=== PATIENT | female | born 1940 ===

== ENCOUNTER 2020-11-13 02:25 | Inpatient (IN) | payer OTHER, SELFPAY ==
[2020-11-13 05:29] VITALS: BMI 27.6
[2020-11-13] MEDS ORDERED: Acetaminophen 325 MG TAB PO PRN (06:09)
[2020-11-13] MEDS: Sodium Chloride 0.9% 1,000 ML IV SCH ×2 (06:32→21:55)
[2020-11-13 06:44] LABS: #Eosinphils 0.1 thou/uL (0.0-0.7); #Lymphocytes 2.7 thou/uL (1.20-3.40); #Monocytes 0.7 thou/uL (0.11-0.59); #Neutrophils 8.1 thou/uL (1.40-6.50); %Basophils 0.1 % (0.0-1.0); %Eosinophils 0.5 % (0.0-10.0); %Lymphocytes 23.2 % (21.0-51.0); %Monocytes 5.7 % (0.0-10.0); %Neutrophils 70.4 % (42.0-75.0); Hemoglobin 13.5 g/dL (12.0-16.0); Mean Corpuscular HGB CONC 35.1 g/dL (32.0-36.0); Mean Corpuscular Hemoglobin 33.3 pg (27.0-31.0); Mean Corpuscular Volume 94.8 fL (78.0-98.0); Platelet Count 190 thou/uL (130-400); RBC Distribution Width 11.3 % (11.5-14.5); Red Blood Cell (RBC) Count 4.05 mill/uL (4.20-5.40); White Blood Cell (WBC) Count 11.5 thou/uL (4.8-10.8)
[2020-11-13 07:08] LABS: ALT (SGPT) 16 U/L (8-55); AST (SGOT) 24 U/L (5-34); Albumin 3.5 g/dL (3.4-4.8); Alkaline Phosphatase 79 U/L (40-110); Anion Gap 14 mmol/L (10-20); BUN (Urea Nitrogen) 8 mg/dL (9.8-20.1); Calc. Creatinine Clearance 62 mL/min (70-130); Carbon Dioxide 22 mmol/L (23-31); Chloride 101 mmol/L (98-107); Globulin 2.8 g/dL (2.4-3.5); Glucose 160 mg/dL (83-110); Potassium 3.8 mmol/L (3.5-5.1); Protein, Total 6.3 g/dL (5.8-8.1); Sodium 133 mmol/L (136-145)
[2020-11-13] MEDS ORDERED: Sodium Chloride 0.9% 500 ML IV SCH (08:00)
[2020-11-13] MEDS ORDERED: ROCKLATAN EA EYE SCH (08:15)
[2020-11-13] MEDS: Pantoprazole 40 MG VIAL IVP SCH (10:38)
[2020-11-13] MEDS: Fentanyl 100 MCG/2 ML VIAL SLOW IVP PRN ×2 (14:25→22:55)
[2020-11-13] MEDS: Ondansetron PF 4 MG/2 ML Vial IVP PRN (14:27)
[2020-11-13] MEDS: Timolol 0.5% Ophth Soln 5 ml Bottle EA EYE SCH (21:54)
[2020-11-13] MEDS: Brimonidine Tartrate 0.2% Ophth Soln 5 ml Bottle EA EYE SCH (21:55)
[2020-11-14 06:15] LABS: #Eosinphils 0.1 thou/uL (0.0-0.7); #Lymphocytes 3.2 thou/uL (1.20-3.40); #Monocytes 0.6 thou/uL (0.11-0.59); #Neutrophils 2.6 thou/uL (1.40-6.50); %Basophils 0.4 % (0.0-1.0); %Eosinophils 1.9 % (0.0-10.0); %Monocytes 8.8 % (0.0-10.0); %Neutrophils 39.9 % (42.0-75.0); Hemoglobin 12.1 g/dL (12.0-16.0); Mean Corpuscular HGB CONC 33.2 g/dL (32.0-36.0); Mean Corpuscular Hemoglobin 31.9 pg (27.0-31.0); Mean Platelet Volume 8.1 fL (7.4-10.4); Platelet Count 170 thou/uL (130-400); RBC Distribution Width 11.5 % (11.5-14.5); White Blood Cell (WBC) Count 6.5 thou/uL (4.8-10.8)
[2020-11-14 06:43] LABS: Anion Gap 9 mmol/L (10-20); BUN (Urea Nitrogen) 6 mg/dL (9.8-20.1); Calc. Creatinine Clearance 70 mL/min (70-130); Calcium 8.5 mg/dL (7.8-10.44); Carbon Dioxide 24 mmol/L (23-31); Chloride 107 mmol/L (98-107); Glucose 92 mg/dL (83-110); Potassium 3.8 mmol/L (3.5-5.1); Sodium 136 mmol/L (136-145)
[2020-11-14] MEDS: Fentanyl 100 MCG/2 ML VIAL SLOW IVP PRN ×3 (09:24→23:01)
[2020-11-14] MEDS: Pantoprazole 40 MG VIAL IVP SCH (09:25)
[2020-11-14] MEDS: Sodium Chloride 0.9% 1,000 ML IV SCH (10:37)
[2020-11-14] MEDS ORDERED: Bupivacaine PF 0.5% 30 ML VIAL ONE (11:33)
[2020-11-14] MEDS ORDERED: Lidocaine 1% w/Epinephrine 1:100K 20 ML VIAL ONE (11:33)
[2020-11-14] MEDS ORDERED: cefOXitin Sodium/Dextrose 2 GM/50 ML BAG ONE (11:58)
[2020-11-14] MEDS ORDERED: Fentanyl 100 MCG/2 ML VIAL ONE (12:00)
[2020-11-14] MEDS ORDERED: PHENYLEPHRINE-NS 100 MCG/ML 10 ML SYRINGE ONE (12:15)
[2020-11-14] MEDS ORDERED: Dexamethasone 20 MG/5 ML VIAL ONE (12:15)
[2020-11-14] MEDS ORDERED: PROPOFOL 200 MG/20 ML VIAL ONE (12:15)
[2020-11-14] MEDS ORDERED: ePHEDrine 50 MG/ML VIAL ONE (12:15)
[2020-11-14] MEDS ORDERED: Glycopyrrolate 0.2 MG/ML 5 ML SYRINGE ONE (12:15)
[2020-11-14] MEDS ORDERED: Rocuronium Bromide 10 MG/ML (10ML VIAL) ONE (12:15)
[2020-11-14] MEDS ORDERED: Succinylcholine 200 MG/10 ml SYRINGE FS ONE (12:15)
[2020-11-14] MEDS ORDERED: Lidocaine 1% PF 5 ML VIAL ONE (12:15)
[2020-11-14] MEDS ORDERED: Promethazine HCl 25 MG/ML VIAL IM PRN (15:56)
[2020-11-14] MEDS ORDERED: Promethazine HCl 25 MG/ML VIAL IVPB PRN (15:56)
[2020-11-14] MEDS ORDERED: Ondansetron HCl/PF 4 MG/2 ML Vial IVP PRN (15:56)
[2020-11-14] MEDS ORDERED: traMADol HCl 50 MG TAB PO PRN (16:29)
[2020-11-14] MEDS: cefOXitin Sodium/Dextrose,Iso 2 GM in Premix Bag 1 BAG IVPB SCH (20:21)
[2020-11-14] MEDS: Brimonidine Tartrate 0.2% Ophth Soln 5 ml Bottle EA EYE SCH (20:21)
[2020-11-14] MEDS: Timolol 0.5% Ophth Soln 5 ml Bottle EA EYE SCH (20:22)
[2020-11-14] MEDS: traMADol HCl 50 MG TAB PO PRN (20:32)
[2020-11-15] MEDS: Sodium Chloride 0.9% 1,000 ML IV SCH ×2 (01:27→14:22)
[2020-11-15] MEDS: Fentanyl 100 MCG/2 ML VIAL SLOW IVP PRN (01:58)
[2020-11-15] MEDS: cefOXitin Sodium/Dextrose,Iso 2 GM in Premix Bag 1 BAG IVPB SCH ×2 (04:17→11:43)
[2020-11-15] MEDS: traMADol HCl 50 MG TAB PO PRN ×2 (04:18→17:46)
[2020-11-15 06:46] LABS: #Lymphocytes 1.6 thou/uL (1.20-3.40); #Monocytes 0.7 thou/uL (0.11-0.59); #Neutrophils 7.6 thou/uL (1.40-6.50); %Basophils 0.4 % (0.0-1.0); %Eosinophils 0.5 % (0.0-10.0); %Lymphocytes 15.6 % (21.0-51.0); %Monocytes 7.1 % (0.0-10.0); %Neutrophils 76.4 % (42.0-75.0); Hemoglobin 11.3 g/dL (12.0-16.0); Mean Corpuscular HGB CONC 34.7 g/dL (32.0-36.0); Mean Corpuscular Volume 95.1 fL (78.0-98.0); Mean Platelet Volume 8.4 fL (7.4-10.4); Platelet Count 166 thou/uL (130-400); RBC Distribution Width 11.4 % (11.5-14.5); Red Blood Cell (RBC) Count 3.42 mill/uL (4.20-5.40); White Blood Cell (WBC) Count 9.9 thou/uL (4.8-10.8)
[2020-11-15 07:08] LABS: Anion Gap 13 mmol/L (10-20); BUN (Urea Nitrogen) 7 mg/dL (9.8-20.1); Calc. Creatinine Clearance 59 mL/min (70-130); Calcium 7.9 mg/dL (7.8-10.44); Carbon Dioxide 24 mmol/L (23-31); Chloride 105 mmol/L (98-107); Glucose 121 mg/dL (83-110); Potassium 3.8 mmol/L (3.5-5.1); Sodium 138 mmol/L (136-145)
[2020-11-15] MEDS: Pantoprazole 40 MG VIAL IVP SCH (08:52)
[2020-11-15] MEDS: Lidocaine 5% Patch TD SCH (14:22)
[2020-11-15] MEDS: Brimonidine Tartrate 0.2% Ophth Soln 5 ml Bottle EA EYE SCH (20:45)
[2020-11-15] MEDS: Timolol 0.5% Ophth Soln 5 ml Bottle EA EYE SCH (20:46)
[2020-11-16] MEDS: traMADol HCl 50 MG TAB PO PRN (00:01)
[2020-11-16] MEDS: Transdermal Patch Removal TOP SCH (00:03)
[2020-11-16 07:20] LABS: #Basophils 0.1 thou/uL (0.0-0.2); #Lymphocytes 2.8 thou/uL (1.20-3.40); #Monocytes 0.7 thou/uL (0.11-0.59); #Neutrophils 5.4 thou/uL (1.40-6.50); %Basophils 0.8 % (0.0-1.0); %Eosinophils 0.4 % (0.0-10.0); %Lymphocytes 30.9 % (21.0-51.0); %Monocytes 8.1 % (0.0-10.0); %Neutrophils 59.8 % (42.0-75.0); Hemoglobin 10.3 g/dL (12.0-16.0); Mean Corpuscular HGB CONC 33.7 g/dL (32.0-36.0); Mean Corpuscular Hemoglobin 32.6 pg (27.0-31.0); Mean Corpuscular Volume 96.7 fL (78.0-98.0); Mean Platelet Volume 7.8 fL (7.4-10.4); Platelet Count 169 thou/uL (130-400); RBC Distribution Width 11.3 % (11.5-14.5); Red Blood Cell (RBC) Count 3.17 mill/uL (4.20-5.40)
[2020-11-16 07:25] LABS: Anion Gap 12 mmol/L (10-20); BUN (Urea Nitrogen) 5 mg/dL (9.8-20.1); Calc. Creatinine Clearance 74 mL/min (70-130); Calcium 7.9 mg/dL (7.8-10.44); Carbon Dioxide 24 mmol/L (23-31); Chloride 104 mmol/L (98-107); Glucose 85 mg/dL (83-110); Potassium 3.4 mmol/L (3.5-5.1); Sodium 137 mmol/L (136-145)
[2020-11-16] MEDS ORDERED: Cepastat Lozenges 1 LOZ PO PRN (07:38)
[2020-11-16] MEDS ORDERED: Bisacodyl 5 MG TAB PO PRN (07:38)
[2020-11-16] MEDS ORDERED: hydrALAZINE 20 MG/ML VIAL SLOW IVP PRN (07:38)
[2020-11-16] MEDS ORDERED: Calcium Carbonate 500 MG ChewTAB PO PRN (07:38)
[2020-11-16] MEDS ORDERED: Hydrocerin (Eucerin) Cream 120 gm Jar TOP PRN (07:38)
[2020-11-16] MEDS ORDERED: Senokot S 8.6-50 MG TAB PO PRN (07:38)
[2020-11-16] MEDS ORDERED: Sodium Chloride 0.65% Nasal 44 ML BOT EA NARE PRN (07:38)
[2020-11-16] MEDS ORDERED: GUAIFENESIN SF SOLN 200 MG/10 ML UDCUP PO PRN (07:38)
[2020-11-16] MEDS ORDERED: Ondansetron ODT 4 MG TAB SL PRN (07:38)
[2020-11-16] MEDS ORDERED: Loratadine 10 MG TAB PO PRN (07:38)
[2020-11-16] MEDS ORDERED: Artificial Tear Sol 15 ML BOT EA EYE PRN (07:38)
[2020-11-16] MEDS ORDERED: Potassium Chloride 20 MEQ TAB PO SCH (07:45)
[2020-11-16] MEDS: Cholecalciferol 1,000 UNITS (25 MCG) TAB PO SCH (09:46)
[2020-11-16] MEDS: Pantoprazole 40 MG VIAL IVP SCH (09:47)
[2020-11-16] MEDS: Ferrous Sulfate 325 MG TAB PO SCH (09:47)
[2020-11-16] MEDS: Lisinopril 10 MG TAB PO SCH ×2 (09:47→20:15)
[2020-11-16] MEDS: Fentanyl 100 MCG/2 ML VIAL SLOW IVP PRN (10:59)
[2020-11-16] MEDS: Ondansetron PF 4 MG/2 ML Vial IVP PRN (10:59)
[2020-11-16] MEDS: Lidocaine 5% Patch TD SCH (13:19)
[2020-11-16] MEDS: D5 1/2 NS w/20 mEq KCL 1,000 ML IV SCH (13:21)
[2020-11-16] MEDS: Atorvastatin Calcium 20 MG TAB PO SCH (20:15)
[2020-11-16] MEDS: Timolol 0.5% Ophth Soln 5 ml Bottle EA EYE SCH (20:15)
[2020-11-16] MEDS: Brimonidine Tartrate 0.2% Ophth Soln 5 ml Bottle EA EYE SCH (20:15)
[2020-11-16] MEDS ORDERED: Metoprolol Tartrate 50 MG TAB PO SCH (21:00)
[2020-11-17] MEDS: D5 1/2 NS w/20 mEq KCL 1,000 ML IV SCH ×3 (01:59→22:19)
[2020-11-17] MEDS: Transdermal Patch Removal TOP SCH (02:00)
[2020-11-17] MEDS: Pantoprazole 40 MG VIAL IVP SCH (08:59)
[2020-11-17] MEDS: Ferrous Sulfate 325 MG TAB PO SCH (08:59)
[2020-11-17] MEDS: Cholecalciferol 1,000 UNITS (25 MCG) TAB PO SCH (09:00)
[2020-11-17] MEDS: Lisinopril 10 MG TAB PO SCH ×2 (12:06→21:19)
[2020-11-17] MEDS: Lidocaine 5% Patch TD SCH (14:46)
[2020-11-17] MEDS: Atorvastatin Calcium 20 MG TAB PO SCH (21:22)
[2020-11-17] MEDS: Brimonidine Tartrate 0.2% Ophth Soln 5 ml Bottle EA EYE SCH (22:09)
[2020-11-17] MEDS: Timolol 0.5% Ophth Soln 5 ml Bottle EA EYE SCH (22:09)
[2020-11-18] MEDS: Transdermal Patch Removal TOP SCH (01:00)
[2020-11-18 07:00] LABS: #Eosinphils 0.1 thou/uL (0.0-0.7); #Lymphocytes 2.2 thou/uL (1.20-3.40); #Monocytes 0.5 thou/uL (0.11-0.59); #Neutrophils 3.5 thou/uL (1.40-6.50); %Basophils 0.4 % (0.0-1.0); %Eosinophils 1.6 % (0.0-10.0); %Lymphocytes 35.3 % (21.0-51.0); %Monocytes 7.8 % (0.0-10.0); %Neutrophils 54.9 % (42.0-75.0); Hemoglobin 10.7 g/dL (12.0-16.0); Mean Corpuscular HGB CONC 33.3 g/dL (32.0-36.0); Mean Corpuscular Volume 96.1 fL (78.0-98.0); Platelet Count 188 thou/uL (130-400); RBC Distribution Width 11.5 % (11.5-14.5); Red Blood Cell (RBC) Count 3.35 mill/uL (4.20-5.40); White Blood Cell (WBC) Count 6.3 thou/uL (4.8-10.8)
[2020-11-18] MEDS: Ferrous Sulfate 325 MG TAB PO SCH (08:59)
[2020-11-18] MEDS: Lisinopril 10 MG TAB PO SCH (09:00)
[2020-11-18] MEDS: Cholecalciferol 1,000 UNITS (25 MCG) TAB PO SCH (09:00)
[2020-11-18] MEDS: Pantoprazole 40 MG VIAL IVP SCH (09:01)
[2020-11-18 12:40] VITALS: BP 161/79; TEMP 98.2
== END 2020-11-18 12:35 | disposition home or self-care (01) | DRG 354 ==
LOC: SURG A 02:25 → OBSVTOIN 06:12
PROVIDERS: ADMIT Internal Medicine; ATTEND Internal Medicine
PROC: 0WQF4ZZ Repair Abdominal Wall, Percutaneous Endoscopic Approach (ICD-10-PCS; principal; 2020-11-14)
PROC: 3E0M45Z Introduction of Adhesion Barrier into Peritoneal Cavity, Percutaneous Endoscopic Approach (ICD-10-PCS; 2020-11-14)
DX: K43.3 Parastomal hernia with obstruction, without gangrene (principal); E87.1 Hypo-osmolality and hyponatremia; K43.5 Parastomal hernia without obstruction or gangrene; I10 Essential (primary) hypertension; K21.9 Gastro-esophageal reflux disease without esophagitis; E78.5 Hyperlipidemia, unspecified; F17.210 Nicotine dependence, cigarettes, uncomplicated; I95.9 Hypotension, unspecified; F39 Unspecified mood [affective] disorder; H40.9 Unspecified glaucoma; E87.6 Hypokalemia; R00.1 Bradycardia, unspecified; Z86.73 Personal history of transient ischemic attack (TIA), and cerebral infarction without residual deficits; Z88.5 Allergy status to narcotic agent; Z90.49 Acquired absence of other specified parts of digestive tract; Z93.2 Ileostomy status
CPT/HCPCS: 36415; 74019; 74176; 80048; 80053; 85025; 93005; 93010; C9113; J0360; J0694; J1100; J2405; J2704; J3010; J3480; J3490; J7030; J7050; S0020